=== PATIENT | male | born 1960 | race Caucasian/White ===

== ENCOUNTER 2016-09-21 10:09 | Emergency (ER) | payer OTHER ==
[2016-09-21 11:55] LABS: HEMOGLOBIN 9.1 g/dL (13.7-18.0)
[2016-09-21] MEDS ORDERED: LIDOCAINE 1%, 20ML ONE (12:08)
[2016-09-21] MEDS ORDERED: SODIUM BICARBONATE 4.2%, 5ML ONE (12:08)
[2016-09-21 12:11] LABS: ASPARTATE AMINO TRANSFERASE 57 U/L (15-37); BLOOD UREA NITROGEN 14 mg/dL (7-18)
[2016-09-21 14:20] VITALS: BP 90/59
== END 2016-09-21 14:22 | disposition home or self-care (01) ==
LOC: ED 13:30
DX: K70.31 Alcoholic cirrhosis of liver with ascites (principal); R10.84 Generalized abdominal pain; E83.51 Hypocalcemia; I10 Essential (primary) hypertension; D68.9 Coagulation defect, unspecified; D53.9 Nutritional anemia, unspecified; C64.9 Malignant neoplasm of unspecified kidney, except renal pelvis; Z90.5 Acquired absence of kidney
CPT/HCPCS: 36415; 49083; 80053; 82042; 82140; 83615; 84157; 85025; 85610; 87070; 87205; 89051; 93005; 99285; J3490

== ENCOUNTER 2016-10-20 14:10 | Emergency (ER) | payer OTHER ==
[~2016-10-20] VITALS: Ht 177.8 cm; Wt 85.9 kg
[2016-10-20] MEDS ORDERED: SODIUM CHLORIDE 0.9% 1,000 ML IV ONE (16:07)
[2016-10-20] MEDS ORDERED: LIDOCAINE 1%, 20ML ONE (16:18)
[2016-10-20] MEDS ORDERED: SODIUM BICARBONATE 4.2%, 5ML ONE (16:18)
[2016-10-20 16:37] LABS: BLOOD UREA NITROGEN 13 mg/dL (7-18)
[2016-10-20 16:40] LABS: ASPARTATE AMINO TRANSFERASE 33 U/L (15-37)
[2016-10-20] MEDS ORDERED: SODIUM CHLORIDE 0.9% 1,000ML IVBOLUS ONE (18:30)
[2016-10-20 20:03] VITALS: BP 105/67
== END 2016-10-20 20:05 | disposition home or self-care (01) ==
LOC: ED 16:02
DX: K74.60 Unspecified cirrhosis of liver (principal); I10 Essential (primary) hypertension
CPT/HCPCS: 36415; 49083; 80053; 81003; 82042; 83605; 83615; 83690; 85025; 85610; 87070; 87205; 89051; 99285; J3490

== ENCOUNTER → 2016-11-27 | Outpatient (CLI) | payer OTHER ==
[~2016-11-27] MED LIST: ALBUMIN HUMAN 25%, 25GM/100ML ONE; LIDOCAINE 1%, 20ML ONE; SODIUM BICARBONATE 4.2%, 5ML ONE
== END | disposition home or self-care (01) ==
LOC: RAD 13:45
DX: R18.8 Other ascites (principal); K72.90 Hepatic failure, unspecified without coma
CPT/HCPCS: 49083; J3490; P9047

== ENCOUNTER → 2017-01-04 | Outpatient (CLI) | payer OTHER ==
[~2017-01-04] MED LIST changes: +ALBUMIN HUMAN 25%, 25GM/100ML IV ONE; -ALBUMIN HUMAN 25%, 25GM/100ML ONE; -SODIUM BICARBONATE 4.2%, 5ML ONE
== END | disposition home or self-care (01) ==
LOC: RAD 07:05
PROVIDERS: ATTEND Internal Medicine
DX: R18.8 Other ascites (principal); K72.90 Hepatic failure, unspecified without coma
CPT/HCPCS: 49083; J3490; P9047

== ENCOUNTER → 2017-03-10 | Outpatient (CLI) | payer OTHER ==
[~2017-03-10] MED LIST changes: -ALBUMIN HUMAN 25%, 25GM/100ML IV ONE; +ALBUMIN HUMAN 25%, 25GM/100ML ONE
== END | disposition home or self-care (01) ==
LOC: RAD 08:09
PROVIDERS: ATTEND Internal Medicine
DX: R18.8 Other ascites (principal); K72.90 Hepatic failure, unspecified without coma
CPT/HCPCS: 49083; J3490; P9047

== ENCOUNTER → 2017-05-05 | Outpatient (CLI) | payer OTHER | END | disposition home or self-care (01) | LOC: RAD 08:46 | PROVIDERS: ATTEND Internal Medicine | DX: R18.8 Other ascites (principal); K72.90 Hepatic failure, unspecified without coma | CPT/HCPCS: 49083; J3490; P9047 ==

== ENCOUNTER 2017-06-22 14:28 | Emergency (ER) | payer OTHER ==
[~2017-06-22] VITALS: Ht 175.3 cm; Wt 83.0 kg
[2017-06-22 15:09] LABS: BASOPHILS # (AUTO) 0.03 x10^3/uL (0-0.1); BASOPHILS % (AUTO) 0 % (0-1); EOSINOPHILS # (AUTO) 0.14 x10^3/uL (0-0.4); EOSINOPHILS % (AUTO) 2 % (1-7); LYMPHOCYTES # (AUTO) 1.28 x10^3/uL (1-3.4); LYMPHOCYTES % (AUTO) 21 % (22-44); MD NO; MEAN CORPUSCULAR HEMOGLOBIN 32.6 pg (27.5-34.5); MEAN CORPUSCULAR HGB CONC 33.5 g/dL (33.2-36.2); MEAN CORPUSCULAR VOLUME 97.5 fL (81-97); MEAN PLATELET VOLUME 6.8 fL (7.4-10.4); MONOCYTES # (AUTO) 0.42 x10^3/uL (0.2-0.8); MONOCYTES % (AUTO) 7 % (2-9); NEUTROPHILS # (AUTO) 4.16 x10^3/uL (1.8-6.8); NEUTROPHILS % (AUTO) 69 % (42-75); PLATELET COUNT 161 x10^3/uL (130-400); RED BLOOD COUNT 3.71 x10^6/uL (4.38-5.82); RED CELL DISTRIBUTION WIDTH 14.5 % (9.4-14.8)
[2017-06-22 15:23] LABS: ANION GAP 8 mmol/L (5-15); CALCIUM 8.5 mg/dL (8.5-10.1); CHLORIDE 109 mmol/L (98-107)
[2017-06-22 15:29] LABS: ALANINE AMINOTRANSFERASE 11 U/L (12-78); ALKALINE PHOSPHATASE 106 U/L (45-117); BILIRUBIN,TOTAL 1.4 mg/dL (0.2-1.0); CREATININE 1.61 mg/dL (0.7-1.3); TOTAL PROTEIN 6.9 g/dL (6.4-8.2)
[2017-06-22] MEDS ORDERED: SODIUM CHLORIDE 0.9% 1,000 ML IV ONE (17:51)
[2017-06-22] MEDS ORDERED: SODIUM CHLORIDE FLUSH 10ML SYR IVF ONE (18:00)
[2017-06-22] MEDS ORDERED: LIDOCAINE 1%, 10ML ONE (18:38)
[2017-06-22] MEDS ORDERED: ALBUMIN HUMAN 25% 100 ML IV ONE (20:00)
[2017-06-22] MEDS ORDERED: SODIUM CHLORIDE 0.9%, 500ML IVBOLUS ONE (21:30)
[2017-06-22 21:31] VITALS: BP 106/40
== END 2017-06-22 21:49 | disposition home or self-care (01) ==
LOC: ED 21:43
DX: K70.31 Alcoholic cirrhosis of liver with ascites (principal); I10 Essential (primary) hypertension; Z85.528 Personal history of other malignant neoplasm of kidney
CPT/HCPCS: 36415; 49083; 80053; 82042; 83615; 85025; 87070; 87205; 89051; 93005; 96365; 99285; J3490; J7040; P9047

== ENCOUNTER → 2017-09-23 | Outpatient (CLI) | payer OTHER ==
[~2017-09-23] MED LIST changes: -LIDOCAINE 1%, 20ML ONE; +LIDOCAINE-MPF 1%, 5ML ONE
== END | disposition home or self-care (01) ==
LOC: RAD 09:34
PROVIDERS: ATTEND Internal Medicine
DX: K74.60 Unspecified cirrhosis of liver (principal); R18.8 Other ascites
CPT/HCPCS: 49083; P9047

== ENCOUNTER → 2017-11-17 | Outpatient (CLI) | payer OTHER ==
[~2017-11-17] MED LIST changes: -LIDOCAINE-MPF 1%, 5ML ONE
== END ==
LOC: RAD 09:42
PROVIDERS: ATTEND Internal Medicine
DX: K74.60 Unspecified cirrhosis of liver (principal); R18.8 Other ascites
CPT/HCPCS: 49083; P9047

== ENCOUNTER → 2018-02-02 | Outpatient (CLI) | payer OTHER ==
[~2018-02-02] MED LIST changes: +LIDOCAINE-MPF 2%, 2ML ONE
== END | disposition home or self-care (01) ==
LOC: RAD 07:37
PROVIDERS: ATTEND Internal Medicine
DX: K74.60 Unspecified cirrhosis of liver (principal); R18.8 Other ascites; R10.9 Unspecified abdominal pain
CPT/HCPCS: 49083; J3490; P9047

== ENCOUNTER 2018-02-20 19:40 | Inpatient (IN) | payer OTHER ==
[~2018-02-20] VITALS: Ht 172.7 cm; Wt 82.8 kg
[2018-02-20] MEDS ORDERED: LORazepam 1MG TABLET PO ONE (21:00)
[2018-02-20] MEDS ORDERED: LORazepam 1MG TABLET ONE (21:10)
[2018-02-20 21:30] LABS: BASOPHILS # (AUTO) 0.04 x10^3/uL (0-0.1); BASOPHILS % (AUTO) 1 % (0-1); EOSINOPHILS % (AUTO) 1 % (1-7); LYMPHOCYTES # (AUTO) 1.26 x10^3/uL (1-3.4); LYMPHOCYTES % (AUTO) 14 % (22-44); MD NO; MEAN CORPUSCULAR HEMOGLOBIN 32.8 pg (27.5-34.5); MEAN CORPUSCULAR HGB CONC 34.7 g/dL (33.2-36.2); MEAN CORPUSCULAR VOLUME 94.7 fL (81-97); MEAN PLATELET VOLUME 7.4 fL (7.4-10.4); MONOCYTES # (AUTO) 0.61 x10^3/uL (0.2-0.8); MONOCYTES % (AUTO) 7 % (2-9); NEUTROPHILS # (AUTO) 6.72 x10^3/uL (1.8-6.8); NEUTROPHILS % (AUTO) 77 % (42-75); PLATELET COUNT 178 x10^3/uL (130-400); RED BLOOD COUNT 4.27 x10^6/uL (4.38-5.82); RED CELL DISTRIBUTION WIDTH 13.8 % (9.4-14.8)
[2018-02-20 21:43] LABS: ALBUMIN 3.6 g/dL (3.4-5.0); ANION GAP 5 mmol/L (5-15); CALCIUM 9.6 mg/dL (8.5-10.1); CHLORIDE 101 mmol/L (98-107); CREATININE 1.71 mg/dL (0.7-1.3)
[2018-02-20 21:53] LABS: T4 (THYROXINE) 11.8 mcg/dL (4.5-12.1)
[2018-02-20] MEDS ORDERED: INSULIN REGULAR 100 UNITS/ML, 3ML VIAL ONE (22:48)
[2018-02-20] MEDS ORDERED: INSULIN REGULAR 100 UNITS/ML, 3ML VIAL SQ-INSULIN ONE (23:00)
[2018-02-20] MEDS ORDERED: SODIUM CHLORIDE 0.9% 1,000ML IVBOLUS ONE (23:00)
[2018-02-21] MEDS ORDERED: FURO-93 PO
[2018-02-21] MEDS ORDERED: ACETAMINOPHEN 325 MG TABLET PO PRN
[2018-02-21] MEDS ORDERED: hydrALAzine 20 MG/ML, 1ML IVPush PRN
[2018-02-21] MEDS ORDERED: ONDANSETRON ODT 4 MG PO PRN
[2018-02-21] MEDS ORDERED: LORazepam 1MG TABLET PO PRN
[2018-02-21] MEDS ORDERED: PROP10TA PO (00:01)
[2018-02-21] MEDS ORDERED: SPIR25TA5 PO (00:02)
[2018-02-21] MEDS ORDERED: PHARMACY MAY ADJ FOR RENAL FX MC PRN (00:30)
[2018-02-21 00:46] LABS: HEMOGLOBIN A1C 9.7 % (4.2-6.3)
[2018-02-21] MEDS: SODIUM CHLORIDE 0.9% 1,000 ML IV SCH ×2 (00:58→07:57)
[2018-02-21 01:56] VITALS: BP 103/67
[2018-02-21 02:19] VITALS: BP 103/67
[2018-02-21 05:05] LABS: ANION GAP 5 mmol/L (5-15); CALCIUM 8.8 mg/dL (8.5-10.1); CHLORIDE 107 mmol/L (98-107); CREATININE 1.57 mg/dL (0.7-1.3)
[2018-02-21 07:31] VITALS: BP 102/67
[2018-02-21] MEDS: INSULIN REGULAR 100 UNITS/ML, 3ML VIAL SQ-INSULIN SCH ×4 (07:35→21:34)
[2018-02-21] MEDS: PROPRANOLOL 10 MG TABLET PO SCH (07:37)
[2018-02-21] MEDS ORDERED: FUROSEMIDE 20 MG TABLET PO SCH (09:00)
[2018-02-21] MEDS ORDERED: SPIRONOLACTONE 25 MG TABLET PO SCH (09:00)
[2018-02-21] MEDS: INSULIN GLARGINE 100 UNITS/ML, PEN SQ-INSULIN SCH ×2 (11:40→21:33)
[2018-02-21 13:11] VITALS: BP 121/75
[2018-02-21 20:20] VITALS: BP 110/73
[2018-02-21] MEDS ORDERED: SODIUM CHLORIDE 0.9% 1,000 ML IV SCH (23:57)
[2018-02-22 01:33] VITALS: BP 113/70
[2018-02-22 07:14] VITALS: BP 122/76
[2018-02-22] MEDS: INSULIN REGULAR 100 UNITS/ML, 3ML VIAL SQ-INSULIN SCH ×2 (08:12→11:19)
[2018-02-22] MEDS: PROPRANOLOL 10 MG TABLET PO SCH (08:12)
[2018-02-22] MEDS: INSULIN GLARGINE 100 UNITS/ML, PEN SQ-INSULIN SCH (08:14)
[2018-02-22] MEDS ORDERED: METF500T17 PO (10:24)
[2018-02-22] MEDS ORDERED: INSU100I13 SQ (10:24)
[2018-02-22 10:51] VITALS: BP 113/74
== END 2018-02-22 12:20 | disposition home or self-care (01) | DRG 637 ==
LOC: ED 21:50 → EDIP 23:11 → 4NOR 02-21 00:35 → DCLOUNGE 02-22 11:56
PROVIDERS: ADMIT Internal Medicine; ATTEND Internal Medicine
DX: E11.65 Type 2 diabetes mellitus with hyperglycemia (principal); N17.0 Acute kidney failure with tubular necrosis; E87.1 Hypo-osmolality and hyponatremia; E86.0 Dehydration; F17.200 Nicotine dependence, unspecified, uncomplicated; K46.9 Unspecified abdominal hernia without obstruction or gangrene; F41.1 Generalized anxiety disorder; I11.9 Hypertensive heart disease without heart failure; K74.60 Unspecified cirrhosis of liver; Z85.528 Personal history of other malignant neoplasm of kidney; Z90.5 Acquired absence of kidney; Z71.6 Tobacco abuse counseling
CPT/HCPCS: 36415; 80048; 82040; 82962; 83036; 84436; 84443; 85025; 93005; 96372; 99285; G0378; J1815; J7030

== ENCOUNTER → 2018-07-19 | Outpatient (CLI) | payer OTHER ==
[~2018-07-19] MED LIST changes: +FURO-93 PO; +INSU100I13 SQ; +LIDOCAINE-MPF 1%, 5ML ONE; -LIDOCAINE-MPF 2%, 2ML ONE; +METF500T17 PO; +PROP10TA16 PO; +SPIR25TA5 PO
== END | disposition home or self-care (01) ==
LOC: RAD 08:02
PROVIDERS: ATTEND Internal Medicine
DX: K74.60 Unspecified cirrhosis of liver (principal); R18.8 Other ascites; Z98.890 Other specified postprocedural states
CPT/HCPCS: 49083; P9047